=== PATIENT | male | born 2000 | race Caucasian/White ===

== ENCOUNTER 2019-06-21 17:17 | Emergency (ER) | payer SELFPAY ==
[~2019-06-21] VITALS: Ht 180 cm; Wt 92.7 kg
[~2019-06-21 17:17] MED LIST: ACET-2222 PO; LISD60CA; PRED20TA PO
[2019-06-21] MEDS ORDERED: IBUPROFEN TABLET 200 MG TAB PO STA (17:50)
[2019-06-21] MEDS ORDERED: DEXAMETHASONE 10 MG/ML (DECADRON) 1 ML VIAL IM ONE (18:00)
[2019-06-21] MEDS ORDERED: CEFDINIR 300 MG (OMNICEF) CAP PO ONE (18:00)
[2019-06-21] MEDS ORDERED: CEFD300C3 PO (18:02)
--- NOTE | 2019-06-21 18:02 | ED EENT ---
History of Present Illness General Chief Complaint: Oral/Throat Problems Stated Complaint: SORE THROAT/SWOLLEN LYMPH NODES IN NECK Nursing Triage Note: C/O sore throat and left swollen lymph nodes. States started yesterday. No fever, vomiting, dirrhea. Decrease appetite and oral intact. Left tonsil is very enlarged- red and nodular History of Present Illness Date Seen by Provider: Jun 21, 2019 Time Seen by Provider: 17:40 Initial Comments 18-year-old male reports approximately 24 hours of sore throat and difficulty swallowing with swelling in his left lymph nodes. He does not have a history of recurrent tonsillitis. He is taking fluids without difficulty. He's taken no Tylenol or ibuprofen. No fever at home. Timing/Duration: abrupt, yesterday Location: throat Prearrival Treatment: no prearrival treatment Associated Symptoms: No change in hearing, No cough, No drooling, No ear drainage, No facial pain/swelling, No fever; malaise; No nasal congestion/drainage, No poor fluid intake; poor solids intake; No sinus infection; sore throat; No tooth pain, No voice change, No other Allergies and Home Medications Allergies Coded Allergies: No Known Drug Allergies (Unverified , 07/13/10) Home Medications Cefdinir 300 Mg Capsule, 300 MG PO BID Prescribed by: PRISCILLA IRBY on 06/21/191801 Prednisone 20 Mg Tablet, 20 MG PO BID Prescribed by: CORNELIO BUITRAGO on 10/22/14 1848 Patient Home Medication List Home Medication List Reviewed: Yes Review of Systems Review of Systems Constitutional: no symptoms reported, see HPI Throat: see HPI, pain, swelling, painful swallowing; denies difficulty with fluids Respiratory: no symptoms reported, see HPI Gastrointestinal: no symptoms reported, see HPI All Other Systems Reviewed Negative Unless Noted: Yes Past Hytgpcr-Tkytah-Owytbl Hx Past Med/Social Hx: Reviewed Nursing Past Med/Soc Hx Patient Social History Alcohol Use: Denies Use Recreational Drug Use: No Smoking Status: Never a Smoker 2nd Hand Smoke Exposure: No Recent Foreign Travel: No Contact w/Someone Who Travel: No Recent Infectious Disease Expo: No Recent Hopitalizations: No Physical Abuse: No Sexual Abuse: No Mistreated: No Fear: No Immunizations Up To Date Tetanus Booster (TDap): Less than 5yrs PED Vaccines UTD: Yes Date of Influenza Vaccine: Jul 16, 2012 Seasonal Allergies Seasonal Allergies: No Past Medical History Surgeries: Yes Appendectomy Respiratory: No Cardiac: No (sinus arrhythmia) Irregular Heartbeat Neurological: No Reproductive Disorders: No Gastrointestinal: No Musculoskeletal: No Endocrine: No Cancer: No Psychosocial: Yes (NO LONGER ON ADHD MEDS) ADD/ADHD, Anxiety, Depression Integumentary: No Physical Exam Vital Signs Vital Signs - First Documented 06/21/19 06/21/19 17:37 18:21 Temp 35.8 Pulse 116 Resp 16 B/P (MAP) 122/69 Pulse Ox 98 Height, Weight, BMI Height: 5'9" Weight: 180lbs. oz. 81.811552il; 28.00 BMI Method:Stated General Appearance: WD/WN, no apparent distress Eyes: bilateral eye normal inspection, bilateral eye PERRL, bilateral eye EOMI Ears: bilateral ear auricle normal, bilateral ear canal normal, bilateral ear TM normal Nose: normal inspection; No discharge Mouth/Throat: No dental tenderness, No excessive drooling; tonsillar exudate (left greater than right), tonsillar swelling (left greater than right), other (No tonsilar abscess appreciated. ) Neck: full range of motion, supple, lymphadenopathy (R), lymphadenopathy (L) Cardiovascular: normal peripheral pulses, regular rate, rhythm Respiratory: chest non-tender, lungs clear, normal breath sounds Gastrointestinal: normal bowel sounds, non tender, soft Neurologic/Psychiatric: no motor/sensory deficits, alert, normal mood/affect, oriented x 3 Skin: normal color, warm/dry; No rash Progress/Results/Core Measures Results/Orders Lab Results Laboratory Tests Test 06/21/19 17:41 Range/Units Group A Streptococcus Screen NEGATIVE NEGATIVE My Orders Orders - PRISCILLA IRBY Rapid Strep A Screen (06/21/19 17:20) Ibuprofen Tablet (Motrin Tablet) (06/21/19 17:50) Dexamethasone Injection (Decadron Inject (06/21/19 18:00) Cefdinir Capsule (Omnicef Capsule) (06/21/19 18:00) Medications Given in ED Current Medications Medications Dose Ordered Sig/Nestor Route Start Time Stop Time Status Last Admin Dose Admin Cefdinir 300 mg ONCE ONCE PO 06/21/19 18:00 06/21/19 18:01 DC 06/21/19 18:10 300 MG Dexamethasone Sodium Phosphate 10 mg ONCE ONCE IM 06/21/19 18:00 06/21/19 18:01 DC 06/21/19 18:10 10 MG Vital Signs/I&O 06/21/19 06/21/19 17:37 18:21 Temp 35.8 Pulse 116 110 Resp 16 16 B/P (MAP) 122/69 120/60 Pulse Ox 98 Departure Impression Primary Impression: Pharyngitis Qualified Codes: J02.9 - Acute pharyngitis, unspecified Disposition: HOME, SELF-CARE Condition: Improved Departure-Patient Inst. Decision time for Depature: 18:05 Referrals: [facility]/SAMIRA RIBEIRO,LOCAL PHYSICIAN (PCP) Primary Care Physician Patient Instructions: Strep Throat (DC) Add. Discharge Instructions: Warm Salt water gargles, every 3-4 hours. Alternate between Tylenol 650 mg and ibuprofen 600 mg every 4 hours for pain or fever. Continue to push oral liquids. Follow-up at [facility] if symptoms are not improving or worsen over the next few days. Take antibiotics as prescribed. Return to emergency department for new, urgent health care needs. All discharge instructions reviewed with patient and/or family. Voiced understanding. Scripts Cefdinir (Cefdinir) 300 Mg Capsule 300 MG PO BID, #14 CAP 0 Refills Prov: PRISCILLA IRBY 06/21/19 PRISCILLA IRBY Jun 21, 2019 18:02
[2019-06-21 18:21] VITALS: BP 120/60
== END 2019-06-21 18:20 | disposition home or self-care (01) ==
LOC: EDUNIT# 17:17 → ER 17:18
DX: J02.9 Acute pharyngitis, unspecified (principal); F41.9 Anxiety disorder, unspecified; F32.9 Major depressive disorder, single episode, unspecified; F90.9 Attention-deficit hyperactivity disorder, unspecified type; Z90.49 Acquired absence of other specified parts of digestive tract
CPT/HCPCS: 87430; 96372; 99284

== ENCOUNTER 2021-07-20 16:23 | Emergency (ER) | payer SELFPAY ==
[~2021-07-20] VITALS: Ht 182 cm; Wt 83.0 kg
[~2021-07-20 16:23] MED LIST changes: +CEFD300C3 PO
[2021-07-20 16:25] VITALS: BP 134/78
[2021-07-20] MEDS ORDERED: ACHD5005 PO (16:42)
[2021-07-20] MEDS ORDERED: DOXY100T2 PO (16:42)
--- NOTE | 2021-07-20 16:44 | ED Upper Extremity ---
General Chief Complaint: Upper Extremity Stated Complaint: RIGHT MIDDLE FINGER RED/SWOLLEN Nursing Triage Note: ARRIVED VIA AMB TO ROOM 08 WITH COMPLAINTS OF RIGHT MIDDLE FINGER SWELLING STARTING A COUPLE OF DAYS AGO. Source: patient Exam Limitations: no limitations History of Present Illness Date Seen by Provider: Jul 20, 2021 Time Seen by Provider: 16:38 Initial Comments To ER with redness and swelling to the proximal nail fold of the right middle finger for 2 to 3 days. No fevers or chills. Onset: just prior to arrival Severity: moderate Pain/Injury Location: right 3rd finger Method of Injury: unknown Modifying Factors: Worse With Movement Allergies and Home Medications Allergies Coded Allergies: No Known Drug Allergies (Unverified , 07/13/10) Patient Home Medication List Home Medication List Reviewed: Yes Cefdinir (Cefdinir) 300 Mg Capsule, 300 MG PO BID Prescribed by: PRISCILLA IRBY on 06/21/191801 Prednisone (Prednisone) 20 Mg Tablet, 20 MG PO BID Prescribed by: CORNELIO BUITRAGO on 10/22/14 1848 Review of Systems Constitutional: see HPI EENTM: see HPI Respiratory: no symptoms reported Cardiovascular: no symptoms reported Genitourinary: no symptoms reported Musculoskeletal: no symptoms reported Skin: see HPI Psychiatric/Neurological: No Symptoms Reported Past Dnhawkd-Vjqzst-Tpalhx Hx Immunizations Up To Date Tetanus Booster (TDap): Less than 5yrs PED Vaccines UTD: Yes Seasonal Allergies Seasonal Allergies: No Past Medical History Surgeries: Yes Appendectomy Respiratory: No Cardiac: No (sinus arrhythmia) Irregular Heartbeat Neurological: No Reproductive Disorders: No Gastrointestinal: No Musculoskeletal: No Endocrine: No Cancer: No Psychosocial: Yes (NO LONGER ON ADHD MEDS) ADD/ADHD, Anxiety, Depression Integumentary: No Physical Exam Vital Signs Vital Signs - First Documented 07/20/21 16:25 Temp 36.7 Pulse 79 Resp 16 B/P (MAP) 134/78 (96) Pulse Ox 100 O2 Delivery Room Air Capillary Refill : Less Than 3 Seconds Height, Weight, BMI Height: 5'9" Weight: 180lbs. oz. 81.370847ro; 25.00 BMI Method:Stated General Appearance: WD/WN, no apparent distress HEENT: PERRL/EOMI, normal ENT inspection Neck: non-tender, full range of motion Respiratory: no respiratory distress, no accessory muscle use Gastrointestinal: normal bowel sounds, non tender Elbow/Forearm: normal inspection, non-tender Wrist: Yes normal inspection, Yes non-tender Hand: Right, swelling (There is an abscess with a small amount of erythema and induration along the proximal nail fold. The most fluctuant part of this was stabbed with an 11 blade scalpel. Moderate amount of purulent material was expressed. Culture collected and sent to lab.) Neurologic/Tendon: normal sensation, normal motor functions Neurologic/Psychiatric: alert, normal mood/affect, oriented x 3 Skin: normal color, warm/dry Procedures/Interventions I&D : Blade Size: 11 Progress/Results/Core Measures Results/Orders Vital Signs/I&O 07/20/21 16:25 Temp 36.7 Pulse 79 Resp 16 B/P (MAP) 134/78 (96) Pulse Ox 100 O2 Delivery Room Air Blood Pressure Mean: 96 Departure Impression Primary Impression: Paronychia Disposition: 01 HOME, SELF-CARE Condition: Stable Departure-Patient Inst. Decision time for Depature: 16:40 Referrals: NO,LOCAL PHYSICIAN (PCP/Family) Primary Care Physician Patient Instructions: Paronychia ED Add. Discharge Instructions: 1. Warm water soaks 20 to 30 minutes at a time a few times a day. Try to squeeze as much pus out of this as you can. Antibiotics and pain medication as directed. Return to ER for any worsening. All discharge instructions reviewed with patient and/or family. Voiced understanding. Scripts Hydrocodone/Acetaminophen (Hydrocodone-Acetamin 5-325 mg) 1 Each Tablet 1 TAB PO Q4H PRN for PAIN-MODERATE (5-7), #10 TAB Prov: RAMAN STEELE APRN 07/20/21 Doxycycline Hyclate (Doxycycline Hyclate) 100 Mg Tablet 100 MG PO BID, #14 TAB 0 Refills Prov: RAMAN STEELE APRN 07/20/21 Work/School Note: Work Release Form Date Seen in the Emergency Department: Jul 20, 2021 Return to Work: Jul 21, 2021 Other Restrictions Listed Below: no use of right had until 07/25/21 RAMAN STEELE APRN Jul 20, 2021 16:43
== END 2021-07-20 16:54 | disposition home or self-care (01) ==
LOC: EDUNIT# 16:23 → ER 16:26
DX: L03.011 Cellulitis of right finger (principal)
CPT/HCPCS: 87070; 87077; 87186; 87205; 99282

== ENCOUNTER 2021-08-17 00:17 | Emergency (ER) | payer SELFPAY ==
[~2021-08-17 00:17] MED LIST changes: +ACHD5005 PO; +DOXY100T2 PO
[2021-08-17 00:30] VITALS: BP 151/88
--- NOTE | 2021-08-17 00:36 | ED Lower Extremity ---
General Stated Complaint: LEFT LEG LAC Source: patient History of Present Illness Date Seen by Provider: Aug 17, 2021 Time Seen by Provider: 00:30 Initial Comments PT ARRIVES VIA POV FROM HOME C/O LACERATION TO LEFT LEG 2 DAYS AGO CUT IT WITH A BOX KNIFE--STATES HE WAS BREAKING DOWN BOXES AND CUT IT--WAS WEARING JEANS/PANTS AT THE TIME. OCCURRED AT HOME NO PARESTHESIAS OR MOTOR DEFICITS, NO DIFFICULTY WALKING LAST TETANUS IS UNKNOWN PT IS NOT DIABETIC, NO CHRONIC ILLNESSES HAS NOT SOUGHT CARE UNTIL TONIGHT SYMPTOMS NO DIFFERENT TONIGHT STATES GIRLFRIEND MADE HIM COME TONIGHT PCP: NONE Allergies and Home Medications Allergies Coded Allergies: No Known Drug Allergies (Unverified , 07/13/10) Patient Home Medication List Home Medication List Reviewed: Yes Doxycycline Hyclate (Doxycycline Hyclate) 100 Mg Tablet, 100 MG PO BID Prescribed by: RAMAN STEELE on 07/20/21 164 Hydrocodone/Acetaminophen (Hydrocodone-Acetamin 5-325 mg) 1 Each Tablet, 1 TAB PO Q4H PRN for PAIN-MODERATE (5-7) Prescribed by: RAMAN STEELE on 07/20/21 164 Mupirocin (Mupirocin) 22 Gm Oint...g., 22 GM TP BID Prescribed by: LEILA JEFFRIES on 08/17/21 0042 Review of Systems Constitutional: no symptoms reported Musculoskeletal: see HPI Skin: see HPI Psychiatric/Neurological: No Symptoms Reported Past Xcbvrpo-Ziyjrc-Wdthqy Hx Immunizations Up To Date Tetanus Booster (TDap): More than 5yrs PED Vaccines UTD: Yes Seasonal Allergies Seasonal Allergies: No Past Medical History Surgeries: Yes (INTERNAL HEART MONITOR) Appendectomy Respiratory: No Cardiac: Yes (SINUS ARRHYTHMIA-HAD INTERNAL HEART MONITOR) Irregular Heartbeat Neurological: No Reproductive Disorders: No Gastrointestinal: No Musculoskeletal: No Endocrine: No Cancer: No Psychosocial: Yes (NO LONGER ON ADHD MEDS) ADD/ADHD, Anxiety, Depression Integumentary: No Physical Exam Vital Signs Capillary Refill : Height, Weight, BMI Height: 5'9" Weight: 180lbs. oz. 81.176705ai; 25.00 BMI Method:Stated General Appearance: WD/WN, no apparent distress, other (WALKS AND MOVES WITHOUT DIFFICULTY) Legs: left leg other (HAS SUPERFICIAL APPEARING 2 CM SCABBED WOUND TO ANTERIOR/MEDIAL ASPECT OF LEFT THIGH. WOUND IS CLEAN AND DRY. NO SIGNS OF INFECTION. NO SWELLING OR BRUISING, NO REDNESS, NO DRAINAGE NO STREAKS. NO SIGNIFICANT TENDERNESS. ) Progress/Results/Core Measures Results/Orders My Orders Orders - LEILA JEFFRIES DO Dipht,Pertuss(Acell),Tet Adult (Boostrix (08/17/21 00:45) Medications Given in ED Current Medications Medications Dose Ordered Sig/Nestor Route Start Time Stop Time Status Last Admin Dose Admin Diphtheria/ Tetanus/Acell Pertussis 0.5 ml ONCE ONCE IM 08/17/21 00:45 08/17/21 00:46 08/17/21 00:39 0.5 ML Departure Impression Primary Impression: Laceration of left thigh Additional Impression: Iiscldaplv-mjihfxzhk-ayxrmfr (DPT) vaccination administered at current visit Disposition: HOME, SELF-CARE Condition: Stable Departure-Patient Inst. Decision time for Depature: 00:40 Referrals: NO,LOCAL PHYSICIAN (PCP/Family) Primary Care Physician Patient Instructions: Diphtheria and Tetanus Toxoids, and Acellular Pertussis Vaccine, Wound Care (DC) Add. Discharge Instructions: CLEAN WOUND TWICE A DAY WITH ANTIBACTERIAL SOAP AND WATER, APPLY ANTIBIOTIC OINTMENT AND FRESH DRESSING TWICE A DAY TYLENOL AND MOTRIN NEEDED FOR PAIN RETURN TO ER IF PROBLEMS Scripts Mupirocin (Mupirocin) 22 Gm Oint...g. 22 GM TP BID, #1 TUBE Prov: LEILA JEFFRIES DO 08/17/21 LEILA JEFFRIES DO Aug 17, 2021 00:36
[2021-08-17] MEDS ORDERED: MUPI22OI2 TP (00:42)
[2021-08-17] MEDS ORDERED: TETANUS,DIPTH,PERTUSS P/F (BOOSTRIX) 0.5 ML VIAL IM ONE (00:45)
== END 2021-08-17 00:53 | disposition home or self-care (01) ==
LOC: EDUNIT# 00:17 → ER 00:20
DX: S71.112A Laceration without foreign body, left thigh, initial encounter (principal); Z23 Encounter for immunization; W26.0XXA Contact with knife, initial encounter; Y92.009 Unspecified place in unspecified non-institutional (private) residence as the place of occurrence of the external cause
CPT/HCPCS: 90715; 99284

== ENCOUNTER 2022-02-03 12:45 | Emergency (ER) | payer SELFPAY ==
[~2022-02-03] VITALS: Ht 182 cm; Wt 77.1 kg
[~2022-02-03 12:45] MED LIST changes: +MUPI22OI2 TP
[2022-02-03 13:02] VITALS: BP 149/93
[2022-02-03] MEDS ORDERED: AMOX500C2 PO (13:43)
[2022-02-03] MEDS ORDERED: ACHD5005 PO (13:43)
--- NOTE | 2022-02-03 13:44 | ED EENT ---
History of Present Illness General Chief Complaint: Dental Problems/Pain Stated Complaint: DENTAL PAIN Nursing Triage Note: PT PRESENTS TO ED VIA POV FROM HOME WITH COMPLAINTS OF R UPPER DENTAL PAIN X 2 DAYS. Source: patient Exam Limitations: no limitations History of Present Illness Date Seen by Provider: Feb 03, 2022 Time Seen by Provider: 13:41 Allergies and Home Medications Allergies Coded Allergies: No Known Drug Allergies (Unverified , 07/13/10) Patient Home Medication List Doxycycline Hyclate (Doxycycline Hyclate) 100 Mg Tablet, 100 MG PO BID Prescribed by: RAMAN STEELE on 07/20/21 164 Hydrocodone/Acetaminophen (Hydrocodone-Acetamin 5-325 mg) 1 Each Tablet, 1 TAB PO Q4H PRN for PAIN-MODERATE (5-7) Prescribed by: RAMAN STEELE on 07/20/21 164 Mupirocin (Mupirocin) 22 Gm Oint...g., 22 GM TP BID Prescribed by: LEILA JEFFRIES on 08/17/21 0042 Past Pdqncbr-Aqgwek-Cgtdro Hx Immunizations Up To Date Tetanus Booster (TDap): More than 5yrs PED Vaccines UTD: Yes Seasonal Allergies Seasonal Allergies: No Past Medical History Surgery/Hospitalization HX: sx: appendix Surgeries: Yes (INTERNAL HEART MONITOR) Appendectomy Respiratory: No Cardiac: Yes (SINUS ARRHYTHMIA-HAD INTERNAL HEART MONITOR) Irregular Heartbeat Neurological: No Reproductive Disorders: No Gastrointestinal: No Musculoskeletal: No Endocrine: No Cancer: No Psychosocial: Yes (NO LONGER ON ADHD MEDS) ADD/ADHD, Anxiety, Depression Integumentary: No Physical Exam Vital Signs Vital Signs - First Documented 02/03/22 13:02 Temp 36.7 Pulse 60 Resp 16 B/P (MAP) 149/93 (111) Pulse Ox 99 Height, Weight, BMI Height: 5'9" Weight: 180lbs. oz. 81.471454sf; 23.00 BMI Method:Stated Progress/Results/Core Measures Results/Orders Vital Signs/I&O 02/03/22 13:02 Temp 36.7 Pulse 60 Resp 16 B/P (MAP) 149/93 (111) Pulse Ox 99 2 Blood Pressure Mean: 111 Departure Impression Primary Impression: Broken tooth Disposition: 01 HOME, SELF-CARE Condition: Stable Departure-Patient Inst. Decision time for Depature: 13:41 Referrals: NO,LOCAL PHYSICIAN (PCP/Family) Primary Care Physician Patient Instructions: Dental Pain, Fractured Tooth Add. Discharge Instructions: Plan: 1. Take antibiotics daily as directed and complete full course even if you begin to feel better. 2. Take pain medication as directed for severe pain, you can take ibuprofen 600 mg every 6 hours as needed as well. Do not drive while taking hydrocodone. 3. Follow-up with dental provider of choice on Saturday for further evaluation as you will likely require extraction or root canal. 4. Return to the ER if you develop increased swelling, inability to open your jaw, any other new or concerning symptoms. All discharge instructions reviewed with patient and/or family. Voiced un derstanding. Scripts Hydrocodone/Acetaminophen (Hydrocodone-Acetamin 5-325 mg) 5 Mg-325 Mg Tablet 1 TAB PO Q6H PRN for PAIN-MODERATE (5-7), #10 TAB 0 Refills Prov: GIANFRANCO RICE DIRECTOR OF [employer] 02/03/22 Amoxicillin (Amoxicillin) 500 Mg Capsule 500 MG PO TID for 7 Days, #21 CAP 0 Refills Prov: GIANFRANCO RICE DIRECT[employer] 02/03/22 GIANFRANCO RICE DIRECTOR [employer] Feb 03, 2022 13:43
== END 2022-02-03 13:48 | disposition home or self-care (01) ==
LOC: EDUNIT# 12:45 → ER 12:47
DX: K03.81 Cracked tooth (principal); Z28.310 Unvaccinated for COVID-19
CPT/HCPCS: 99282

== ENCOUNTER 2022-07-02 14:22 | Emergency (ER) | payer SELFPAY ==
[~2022-07-02] VITALS: Ht 182.8 cm; Wt 74.8 kg
[~2022-07-02 14:22] MED LIST changes: +AMOX500C2 PO
[2022-07-02] MEDS ORDERED: ONDANSETRON 4 MG (ZOFRAN) ORAL DISSOLVE TAB PO STA (14:57)
--- NOTE | 2022-07-02 15:01 | ED GI ---
General Chief Complaint: Abdominal/GI Problems Stated Complaint: ABD PAIN | VOMITING Nursing Triage Note: PT AMB TO RM 3 WITH CC OF GENERALIZED ABD PAIN SINCE THIS AM. PT REPORTS NAUSEA AND VOMITING AFTER DRINKING WATER THIS AM. PT REPORTS WAS AT A B-DAY LIBERTARIAN THIS AND SEVERAL OTHER WHO WERE THERE HAVE THE SAME S/S. PT DENIES BLOOD IN STOOL AND RECENT ILLNESS. Source of Information: Patient (CRISTHIANMINNA) History of Present Illness Date Seen by Provider: Jul 02, 2022 Time Seen by Provider: 02:42 Initial Comments 21yo M with no significant PMH presents to the ED with new onset diffuse,constant, abd pain with associated vomiting and diarrhea that started this morning around 4 am. Pt rates his abd pain a 6/10 and characterizes it as "twisting". Pt states that he has experienced at least 9 episodes of non bloody emesis consisting of mostly bile, and >9 episodes of nonbloody, watery diarrhea. Pt also notes associated chills and lightheadedness. Pt denies current nausea. Pt states he attended a alliance party on Saturday and three other individuals from that event also started experiencing similar symptoms today. Pt states that they all ate hamburgers and hotdogs at this event. Pt notes that he has been unable keep down liquids since onset of symptoms this morning. Pt denies fevers, CP, SOB, BELLA, and urinary symptoms. (MINNA MORROW) Initial Comments I seen and evaluated the patient. I personally obtained a history and physical exam. I agree with the documented findings. (KRYSTLE DAVALOS DO) Allergies and Home Medications Allergies Coded Allergies: No Known Drug Allergies (Unverified , 07/13/10) Patient Home Medication List Home Medication List Reviewed: Yes (MINNA MORROW) Amoxicillin (Amoxicillin) 500 Mg Capsule, 500 MG PO TID Prescribed by: GIANFRANCO RICE on 02/03/22 1343 Doxycycline Hyclate (Doxycycline Hyclate) 100 Mg Tablet, 100 MG PO BID Prescribed by: RAMAN STEELE on 07/20/21 1642 Hydrocodone/Acetaminophen (Hydrocodone-Acetamin 5-325 mg) 1 Each Tablet, 1 TAB PO Q4H PRN for PAIN-MODERATE (5-7) Prescribed by: RAMAN STEELE on 07/20/21 1642 Hydrocodone/Acetaminophen (Hydrocodone-Acetamin 5-325 mg) 5 Mg-325 Mg Tablet, 1 TAB PO Q6H PRN for PAIN-MODERATE (5-7) Prescribed by: GIANFRANCO RICE on 02/03/22 1343 Mupirocin (Mupirocin) 22 Gm Oint...g., 22 GM TP BID Prescribed by: LEILA JEFFRIES on 08/17/21 0042 Ondansetron (Ondansetron Odt) 8 Mg Tab.rapdis, 8 MG SL Q6H PRN for NAUSE A/VOMITING Prescribed by: KRYSTLE DAVALOS MD on 07/02/22 1508 Review of Systems Review of Systems Constitutional: chills; No fever EENTM: No Symptoms Reported Respiratory: No Symptoms Reported Cardiovascular: Denies Chest Pain, Denies Edema; Lightheadedness Gastrointestinal: Abdominal Pain (diffuse, constant ); Denies Blood Streaked Stools; Diarrhea (>9 episodes); Denies Nausea; Vomiting (9 episodes) Genitourinary: No Symptoms Reported Musculoskeletal: no symptoms reported Skin: no symptoms reported Psychiatric/Neurological: No Symptoms Reported Endocrine: No Symptoms Reported Hematologic/Lymphatic: No Symptoms Reported (MINNA MORROW) Past Yenqchk-Nbrpmc-Fmrpnm Hx Patient Social History Tobacco Use?: No Substance use?: Yes Substance type: Marijuana Substance frequency: Couple times a week Alcohol Use?: No Pt feels they are or have been: No (MINNA MORROW) Immunizations Up To Date Tetanus Booster (TDap): More than 5yrs PED Vaccines UTD: Yes (MINNA MORROW) Seasonal Allergies Seasonal Allergies: No (MINNA MORROW) Past Medical History Surgery/Hospitalization HX: IRREGULAR HEART RHYTHM sx: appendix Surgeries: Yes (INTERNAL HEART MONITOR) Appendectomy Respiratory: No Cardiac: Yes (SINUS ARRHYTHMIA-HAD INTERNAL HEART MONITOR) Irregular Heartbeat Neurological: No Reproductive Disorders: No Gastrointestinal: No Musculoskeletal: No Endocrine: No Cancer: No Psychosocial: Yes (NO LONGER ON ADHD MEDS) ADD/ADHD, Anxiety, Depression Integumentary: No (MINNA MORROW) Family Medical History Cancer (breast ) (MINNA MORROW) Physical Exam Vital Signs Vital Signs - First Documented 07/02/22 14:39 Temp 36.8 Pulse 72 Resp 18 B/P (MAP) 116/83 (94) Pulse Ox 99 O2 Delivery Room Air (KRYSTLE DAVALOS DO) Vital Signs Capillary Refill : Less Than 3 Seconds (MINNA MORROW) Height/Weight/BMI Height: 5'9" Weight: 180lbs. oz. 81.677302sh; 22.00 BMI Method:Stated General Appearance: WD/WN, no apparent distress HEENT: PERRL/EOMI Respiratory: lungs clear, normal breath sounds, no respiratory distress, no accessory muscle use Cardiovascular: regular rate, rhythm, no murmur Peripheral Pulses: 2+ Dorsalis Pedis (R), 2+ Left Dors-Pedis (L) Gastrointestinal: normal bowel sounds, soft, tenderness (diffuse, worse in epigastric region) Extremities: no pedal edema, no calf tenderness Neurologic/Psychiatric: alert, normal mood/affect, oriented x 3 Skin: normal color, warm/dry (MINNA MORROW) Progress/Results/Core Measures Results/Orders My Orders Orders - KRYSTLE DAVALOS DO Ondansetron Oral Dissolve Tab (Zofran (07/02/22 14:57) (KRYSTLE DAVALOS DO) Vital Signs/I&O 07/02/22 07/02/22 14:39 15:15 Temp 36.8 Pulse 72 72 Resp 18 18 B/P (MAP) 116/83 (94) 120/78 Pulse Ox 99 99 O2 Delivery Room Air Room Air (KRYSTLE DAVALOS DO) Blood Pressure Mean: 94 Departure Communication (Admissions) Patient is hemodynamically stable. Exam is benign. His vital signs are normal. He is tolerating fluids here. No indication for lab testing at this time. He is stable friends with similar symptoms and similar onset after they were leading up to the other. This is likely gastroenteritis of some sort. May be foodborne as well. No indication of acute intra-abdominal pathology otherwise and no evidence for surgical emergency. Discharged home with supportive care and close follow-up. (KRYSTLE DAVALOS DO) Impression Primary Impression: Gastroenteritis Disposition: 01 HOME, SELF-CARE Condition: Stable Departure-Patient Inst. Referrals: NO,LOCAL PHYSICIAN (PCP/Family) Primary Care Physician Patient Instructions: Viral Gastroenteritis in Adults Add. Discharge Instructions: You were seen in the emergency department today for nausea vomiting and diarrhea. No emergent medical condition is identified. It was thought that this is likely related to a GI illness going around. Please wash your hands, do not share drinks or food for the next about 48 hours. Your symptoms are likely the last 24-48 hours and the diarrhea might last slightly longer than this. Increase your fluids at home with taking small sips of fluids every 15 to 20 minutes. Use the Zofran, the nausea medicine, as needed by dissolving it under your tongue. Return to the emergency department for any severe concerns. Follow-up with your primary doctor for any nonemergent All discharge instructions reviewed with patient and/or family. Voiced understanding. Scripts Ondansetron (Ondansetron Odt) 8 Mg Tab.rapdis 8 MG SL Q6H PRN for NAUSEA/VOMITING for 5 Days, #20 TAB Prov: KRYSTLE DAVALOS DO 07/02/22 MINNA MORROW Jul 02, 2022 15:01 KRYSTLE DAVALOS DO Jul 02, 2022 15:10
[2022-07-02] MEDS ORDERED: ONDA8TAB13 SL (15:08)
[2022-07-02 15:15] VITALS: BP 120/78
== END 2022-07-02 15:15 | disposition home or self-care (01) ==
LOC: EDUNIT# 14:22 → ER 14:24
DX: K52.9 Noninfective gastroenteritis and colitis, unspecified (principal); Z90.49 Acquired absence of other specified parts of digestive tract; Z28.310 Unvaccinated for COVID-19
CPT/HCPCS: 99283

== ENCOUNTER 2023-01-13 00:51 | Emergency (ER) | payer SELFPAY ==
[~2023-01-13] VITALS: Ht 183 cm; Wt 81.6 kg
[~2023-01-13 00:51] MED LIST changes: +ONDA8TAB13 SL
[2023-01-13 00:58] VITALS: BP 148/60
[2023-01-13] MEDS ORDERED: KETOROLAC 60 MG/2 ML VIAL IM STA (01:11)
[2023-01-13] MEDS ORDERED: LIDOCAINE 1% INJ 10 ML VIAL ONE (01:14)
[2023-01-13] MEDS ORDERED: LIDOCAINE 1% INJ 20 ML VIAL INJ ONE (01:15)
[2023-01-13] MEDS ORDERED: cefTRIAXone 1,000 MG VIAL IV/IM IM ONE (01:15)
--- NOTE | 2023-01-13 01:18 | ED EENT ---
History of Present Illness General Chief Complaint: Dental Problems/Pain Stated Complaint: TOOTH ACHE Nursing Triage Note: PT AMB TO FT 1 W C/O DENTAL PAIN AND POSS INFECTION TO UPPER RIGHT TOOTH. PT REPORTS THE AREA BEGAN SWELLING ON 01/12/23, IS NOT ESTABLISHED W A DENTIST AND DOES NOT REGULARLY FOLLOW UP W DENTIST. A&OX4. Source: patient History of Present Illness Date Seen by Provider: Jan 13, 2023 Time Seen by Provider: 01:02 Initial Comments PT ARRIVES VIA POV C/O DENTAL PAIN --RIGHT UPPER MOLAR AREA, SINCE WAKING AT 1300 ON 01/12/23 HE JUST GOT OFF WORK AT [employer] AND CAME HERE HE HAS NOT TAKEN ANYTHING FOR PAIN AT ANY TIME STATES HE NOTICED SWELLING TO THE AREA WELL NO KNOWN FEVER HE HAS HAD ONGOING PROBLEMS WITH THIS TOOTH FOR AT LEAST A YEAR. WAS SEEN HERE LAST JANUARY FOR THE SAME. HE NEVER FOLLOWED UP WITH A DENTIST AT ANY TIME. HE DOES NOT HAVE A DENTIST AND DOES NOT HAVE ROUTINE DENTAL CARE. HE DENIES ANY MEDICAL PROBLEMS PCP: [facility] Allergies and Home Medications Allergies Coded Allergies: No Known Drug Allergies (Unverified , 07/13/10) Patient Home Medication List Home Medication List Reviewed: Yes Amoxicillin (Amoxicillin) 500 Mg Capsule, 500 MG PO TID Prescribed by: GIANFRANCO RICE on 02/03/22 1343 Amoxicillin/Potassium Clav (Amox Tr-K Clv 875-125 mg Tab) 875 Mg-125 Mg Tablet, 1 EACH PO BID Prescribed by: LEILA JEFFRIES on 01/13/23 0120 Doxycycline Hyclate (Doxycycline Hyclate) 100 Mg Tablet, 100 MG PO BID Prescribed by: RAMAN STEELE on 07/20/21 1642 Hydrocodone/Acetaminophen (Hydrocodone-Acetamin 5-325 mg) 1 Each Tablet, 1 TAB PO Q4H PRN for PAIN-MODERATE (5-7) Prescribed by: RAMAN STEELE on 07/20/21 1642 Hydrocodone/Acetaminophen (Hydrocodone-Acetamin 5-325 mg) 5 Mg-325 Mg Tablet, 1 TAB PO Q6H PRN for PAIN-MODERATE (5-7) Prescribed by: GIANFRANCO RICE on 02/03/22 1343 Mupirocin (Mupirocin) 22 Gm Oint...g., 22 GM TP BID Prescribed by: LEILA JEFFRIES on 08/17/21 0042 Naproxen (Naproxen) 500 Mg Tablet.dr, 500 MG PO BID Prescribed by: LEILA JEFFRIES on 01/13/23 0120 Ondansetron (Ondansetron Odt) 8 Mg Tab.rapdis, 8 MG SL Q6H PRN for NAUSEA/VOMITING Prescribed by: KRYSTLE DAVALOS MD on 07/02/22 1508 Review of Systems Review of Systems Constitutional: no symptoms reported Ears: No Symptoms Reported Nose: no symptoms reported Mouth: see HPI Throat: no symptoms reported Respiratory: no symptoms reported Cardiovascular: no symptoms reported Gastrointestinal: no symptoms reported Neurological: No Symptoms Reported Past Ptzywjc-Obchjc-Qllpjj Hx Patient Social History Tobacco Use?: No Use of E-Cig and/or Vaping dev: No Substance use?: Yes Substance type: Marijuana Substance frequency: Daily Alcohol Use?: Yes Alcohol Frequency: Once in a while Immunizations Up To Date Tetanus Booster (TDap): More than 5yrs PED Vaccines UTD: Yes Seasonal Allergies Seasonal Allergies: No Past Medical History Surgery/Hospitalization HX: IRREGULAR HEART RHYTHM sx: appendix Surgeries: Yes (INTERNAL HEART MONITOR) Appendectomy Respiratory: No Cardiac: Yes (SINUS ARRHYTHMIA-HAD INTERNAL HEART MONITOR) Irregular Heartbeat Neurological: No Reproductive Disorders: No Genitourinary: No Gastrointestinal: No Musculoskeletal: No Endocrine: No Cancer: No Psychosocial: Yes (NO LONGER ON ADHD MEDS) ADD/ADHD, Anxiety, Depression Integumentary: No Family Medical History Cancer Physical Exam Vital Signs Vital Signs - First Documented 01/13/23 00:58 Temp 37.8 Pulse 80 Resp 18 B/P (MAP) 148/60 (89) Pulse Ox 99 O2 Delivery Room Air Height, Weight, BMI Height: 5'9" Weight: 180lbs. oz. 81.977640xl; 24.00 BMI Method:Stated General Appearance: WD/WN, no apparent distress, other (MALODOROUS; FULL HEAVY BURROWS) Eyes: bilateral eye normal inspection Ears: bilateral ear TM normal Nose: normal inspection Mouth/Throat: No trismus; other (TENDERNESS AND ADJANCENT GUM SWELLING TO RIGHT UPPER POSTERIOR MOLAR. UNABLE TO APPRECIATE IF THERE IS SWELLNG OR ERYTHEMA TO HIS FACE DUE TO HEAVY BURROWS) Neck: non-tender, full range of motion, supple, normal inspection; No lymphadenopathy (R), No lymphadenopathy (L) Cardiovascular: regular rate, rhythm, no murmur Respiratory: normal breath sounds Neurologic/Psychiatric: hospital nurse II-XII nml as tested, no motor/sensory deficits, alert, normal mood/affect, oriented x 3 Skin: normal color, warm/dry Progress/Results/Core Measures Results/Orders My Orders Orders - LEILA JEFFRIES DO Ketorolac Injection (Toradol Injection) (01/13/23 01:11) Ceftriaxone Iv/Im (Ceftriaxone Iv/Im) (01/13/23 01:15) Lidocaine 1% Inj 20 Ml (Xylocaine 1% Inj (01/13/23 01:15) Lidocaine 1% Inj 10 Ml (Xylocaine 1% Inj (01/13/23 01:14) Medications Given in ED Current Medications Medications Dose Ordered Sig/Nestor Route Start Time Stop Time Status Last Admin Dose Admin Ceftriaxone Sodium 1,000 mg ONCE ONCE IM 01/13/23 01:15 01/13/23 01:16 DC 01/13/23 01:18 1,000 MG Lidocaine HCl 10 ml STK-MED ONCE .ROUTE 01/13/23 01:14 01/13/23 01:18 DC 01/13/23 01:19 2.1 ML Vital Signs/I&O 01/13/23 00:58 Temp 37.8 Pulse 80 Resp 18 B/P (MAP) 148/60 (89) Pulse Ox 99 O2 Delivery Room Air Progress Progress Note : Progress Note GIVEN: -ROCEPHIN -TORADOL DISCUSSED ANTICIPATED COURSE, SYMPTOMATIC TREATMENT, NEED FOR FOLLOW UP WITH DENTIST AND RETURN PRECAUTIONS REVIEWED PRIOR RECORDS Departure Impression Primary Impression: DENTAL PAIN WITH INFECTION Disposition: HOME, SELF-CARE Condition: Stable Departure-Patient Inst. Decision time for Depature: 01:15 Referrals: YESENIA ROSALES DO [facility] Patient Instructions: Dental Pain (DC), Tooth Abscess (DC) Add. Discharge Instructions: FOLLOW UP WITH [facility] SOON POSSIBLE--CALL ON SATURDAY TO SCHEDULE AN APPOINTMENT All discharge instructions reviewed with patient and/or family. Voiced understanding. Scripts Naproxen (Naproxen) 500 Mg Tablet. 500 MG PO BID, #20 TAB Prov: LEILA JEFFRIES DO 01/13/23 Amoxicillin/Potassium Clav (Amox Tr-K Clv 875-125 mg Tab) 875 Mg-125 Mg Tablet 1 EACH PO BID for 10 Days, #20 TAB Prov: LEILA JEFFRIES DO 01/13/23 LEILA JEFFRIES DO Jan 13, 2023 01:17
[2023-01-13] MEDS ORDERED: AMOX1TAB12 PO (01:20)
[2023-01-13] MEDS ORDERED: NAPR500T8 PO (01:20)
[2023-01-13] MEDS ORDERED: ONDANSETRON 4 MG (ZOFRAN) ORAL DISSOLVE TAB PO ONE (01:30)
== END 2023-01-13 01:38 | disposition home or self-care (01) ==
LOC: EDUNIT# 00:51 → ER 00:53
DX: K04.7 Periapical abscess without sinus (principal)
CPT/HCPCS: 99284